=== PATIENT | female | born 1985 | race Caucasian/White ===

== ENCOUNTER → 2022-08-08 09:14 | Outpatient (BNVA) | payer OTHER, SELFPAY | PROVIDERS: Visit Provider Psychiatry & Neurology Psychiatry | DX: F33.9 Major depressive disorder, recurrent, unspecified (principal) | CPT/HCPCS: 90833 ==

== ENCOUNTER → 2022-09-28 12:19 | Outpatient (BNVA) | payer OTHER, SELFPAY | PROVIDERS: PCP Pediatrics; Visit Provider Psychiatry & Neurology Psychiatry | DX: F33.9 Major depressive disorder, recurrent, unspecified (principal); F98.8 Other specified behavioral and emotional disorders with onset usually occurring in childhood and adolescence | CPT/HCPCS: 90833 ==

== ENCOUNTER → 2022-11-22 15:57 | Outpatient (BNVA) | payer OTHER, SELFPAY | PROVIDERS: PCP Pediatrics; Visit Provider Psychiatry & Neurology Psychiatry | DX: F33.9 Major depressive disorder, recurrent, unspecified (principal) ==

== ENCOUNTER → 2023-02-28 15:33 | Outpatient (BNVA) | payer OTHER, SELFPAY | PROVIDERS: PCP Pediatrics; Visit Provider Psychiatry & Neurology Psychiatry | DX: F33.9 Major depressive disorder, recurrent, unspecified (principal) ==

== ENCOUNTER 2023-08-22 16:02 | Outpatient (AMB) | payer OTHER, SELFPAY ==
--- NOTE | 2023-08-22 16:58 | A.OFFPSYCH_ITS ---
Intake Intake Visit Reasons: Depression, ADD Allergies ceftin Allergy (Mild, Uncoded 08/22/23 16:21) Rash Medication List - Last Reconciled 08/22/23 by Jv Haney MD bupropion HCl 300 mg PO DAILY dextroamphetamine-amphetamine 10 mg 1 tab PO DAILY PRN dextroamphetamine-amphetamine 20 mg 1 tab PO BID 60 days vilazodone 10 mg PO DAILY 90 days HPI- Psychiatric Chief Complaint: Depression, ADD HPI Narrative: Patient seen psychiatric follow-up. Patient's mood is stable has full range of affect no depressive ruminations no significant seasonal changes to this point the patient enjoys her work things are stable at home patient continues on Wellbutrin and Adderall does not always need the p.r.n. in the afternoon no new medical problems Past Psychiatric History: hx depression saw therapist in school history of ADD with good response to Adderall in the past Mental Status Exam Mental Status Exam Narrative: Mental Status Exam Narrative: Appearance:casually dressed well-groomed Behavior: Cooperative good eye contact psychomotor:nl Speech:clear Thought proccess logical Thought content: No negative preoccupations Mood: Feeling stable good Affect: Ye affect SI:denies HI:denies VH/AH:none Delusions: Insight/judgment:good Memory/cog:intact Concentration and energy intact as measured Assessment and Plan Assessment & Plan (1) ADD (attention deficit disorder) without hyperactivity: Status: Acute Code(s): F98.8 - Other specified behavioral and emotional disorders with onset usually occurring in childhood and adolescence (2) Major depression in full remission: Status: Acute Code(s): F32.5 - Major depressive disorder, single episode, in full remission Plan Continue Wellbutrin 300 mg Adderall b.i.d. with afternoon dose as needed which she is not taking on a regular basis also discussed need for regular sleep schedule recommend daily exercise in the regular sleep with ADD patient consider light box Medications: Refilled bupropion HCl 300 mg PO DAILY 90 tabs 1RF dextroamphetamine-amphetamine 20 mg 1 tab PO BID 120 tabs 0RF 60 days Counseling and coordination of Care Medication management counseling: Effectiveness and Dosing range Details: I spent [33] minutes reviewing the record, seeing the patient and documenting in the medical record. Counseling provided to the patient/caregiver as outlined below. Addressed patient/caregiver concerns regarding current medication regime including effe ctive adherence. Addressed patient/caregiver concerns regarding diagnosis and prognosis including accuracy of diagnosis, prognosis over time, impact of diagnosis. Addressed patient/caregiver concerns regarding impact of recent stressors. 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
== END 2023-08-22 16:49 | disposition home or self-care (01) ==
LOC: HO.HOP 16:02
PROVIDERS: PCP Pediatrics; Visit Provider Psychiatry & Neurology Psychiatry
DX: F98.8 Other specified behavioral and emotional disorders with onset usually occurring in childhood and adolescence (principal); F32.5 Major depressive disorder, single episode, in full remission
CPT/HCPCS: 99214

== ENCOUNTER → 2023-08-22 16:02 | Outpatient (BNVA) | payer OTHER, SELFPAY | PROVIDERS: PCP Pediatrics; Visit Provider Psychiatry & Neurology Psychiatry ==

== ENCOUNTER 2023-12-19 16:14 | Outpatient (AMB) | payer OTHER, SELFPAY ==
--- NOTE | 2023-12-19 16:57 | A.OFFPSYCH_ITS ---
Intake Intake Visit Reasons: depression Allergies ceftin Allergy (Mild, Uncoded 08/22/23 16:21) Rash HPI- Psychiatric Chief Complaint: depression HPI Past Psychiatric History: hx depression saw therapist in school history of ADD with good response to Adderall in the past Assessment and Plan Assessment & Plan (1) ADD (attention deficit disorder) without hyperactivity: Status: Acute Code(s): F98.8 - Other specified behavioral and emotional disorders with onset usually occurring in childhood and adolescence Medications: New dextroamphetamine-amphetamine 37.5 mg ER Partial Fill upon patient request.fill 2 month supply dx ADD 37.5 mg PO DAILY 60 caps 0RF ADD F98.8 - Other specified behavioral and emotional disorders with onset usually occurring in childhood and adolescence Discontinued dextroamphetamine-amphetamine 20 mg Discontinued Reason: Doctor's Order 1 tab PO BID 60 days 120 tabs 0RF Counseling and coordination of Care Details: I spent Counseling provided to the patient/caregiver as outlined below. Addressed patient/caregiver concerns regarding current medication regime including effe ctive adherence. Addressed patient/caregiver concerns regarding diagnosis and prognosis including accuracy of diagnosis, prognosis over time, impact of diagnosis. Addressed patient/caregiver concerns regarding impact of recent stressors. 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
== END 2023-12-19 17:43 | disposition home or self-care (01) ==
LOC: HO.HOP 16:14
PROVIDERS: PCP Pediatrics; Visit Provider Psychiatry & Neurology Psychiatry
DX: F98.8 Other specified behavioral and emotional disorders with onset usually occurring in childhood and adolescence (principal)
CPT/HCPCS: 90833; 99213

== ENCOUNTER → 2023-12-19 16:14 | Outpatient (BNVA) | payer OTHER, SELFPAY | PROVIDERS: PCP Pediatrics; Visit Provider Psychiatry & Neurology Psychiatry ==

== ENCOUNTER 2024-01-21 17:21 | Outpatient (AMB) | payer OTHER, SELFPAY ==
--- NOTE | 2024-01-21 14:27 | MHC.OFFVISPS ---
Intake Intake Visit Reasons: DEPRESSION Allergies ceftin Allergy (Mild, Uncoded 08/22/23 16:21) Rash Medication List - Last Reconciled 01/21/24 by Jv Haney MD bupropion HCl 300 mg PO DAILY dextroamphetamine-amphetamine 10 mg 1 tab PO DAILY PRN dextroamphetamine-amphetamine 37.5 mg ER 37.5 mg PO DAILY vilazodone 10 mg PO DAILY 90 days HPI- Psychiatric Chief Complaint: DEPRESSION HPI Narrative: Pt seen in f/u feels current med changes going ok took new position she does feel more supported the patient reports her blood pressure is 120/78 she feels the long acting mixed amphetamines the recent 0.5 mg been quite helpful. There is learning curve to her new position and responsibilities but she states she feels up to the task Perhaps some difficulty at times with managing multiple tasks Past Psychiatric History: hx depression saw therapist in school history of ADD with good response to Adderall in the past Mental Status Exam Mental Status Exam Narrative: Mental Status Exam Narrative: Appearance:casually dressed well-groomed Behavior: Cooperative good eye contact psychomotor:nl Speech:clear Thought proccess logical Thought content: Some anxiety regarding work Mood: Some flattening Affect: Ye affect SI:denies HI:denies VH/AH:none Delusions: Insight/judgment:good Memory/cog:intact Concentration and energy intact as measured Assessment and Plan Assessment & Plan (1) Major depression in full remission: Status: Acute Code(s): F32.5 - Major depressive disorder, single episode, in full remission (2) ADD (attention deficit disorder) without hyperactivity: Status: Acute Code(s): F98.8 - Other specified behavioral and emotional disorders with onset usually occurring in childhood and adolescence Plan Patient generally better on long-acting stimulants feels better with this continues on Wellbutrin vilazodone with good effect Medications: Refilled vilazodone must administer with a meal/food 10 mg PO DAILY 90 tabs 1RF 90 days Counseling and coordination of Care Details: I spent [] minutes reviewing the record, seeing the patient and documenting in the medical record. Counseling provided to the patient/caregiver as outlined below. Addressed patient/caregiver concerns regarding current medication regime including effective adherence. Addressed patient/caregiver concerns regarding diagnosis and prognosis including accuracy of diagnosis, prognosis over time, impact of diagnosis. Addressed patient/caregiver concerns regarding impact of recent stressors. 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
== END 2024-01-21 17:22 | disposition home or self-care (01) ==
LOC: HO.HOP 17:21
PROVIDERS: PCP Pediatrics; Visit Provider Psychiatry & Neurology Psychiatry
DX: F32.5 Major depressive disorder, single episode, in full remission (principal); F98.8 Other specified behavioral and emotional disorders with onset usually occurring in childhood and adolescence
CPT/HCPCS: 99214

== ENCOUNTER → 2024-01-21 17:21 | Outpatient (BNVA) | payer OTHER, SELFPAY | PROVIDERS: PCP Pediatrics; Visit Provider Psychiatry & Neurology Psychiatry ==

== ENCOUNTER → 2024-05-20 15:11 | Outpatient (BNVA) | payer OTHER, SELFPAY | PROVIDERS: PCP Pediatrics; Visit Provider Psychiatry & Neurology Psychiatry | DX: F98.8 Other specified behavioral and emotional disorders with onset usually occurring in childhood and adolescence (principal) ==

== ENCOUNTER 2024-09-02 14:37 | Outpatient (AMB) | payer OTHER, SELFPAY ==
--- NOTE | 2024-09-02 15:08 | MHC.OFFVISPS ---
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 This has helped manage anxiety and dealing with the kids and maintaining boundaries. No dep sx has done well on combination of wellbutrin and vilazadone. Past Psychiatric History: hx depression saw therapist in school history of ADD with good response to Adderall in the past Mental Status Exam Mental Status Exam Narrative: Mental Status Exam Narrative: Appearance:casually dressed well-groomed Behavior: Cooperative good eye contact psychomotor:nl Speech:clear Thought proccess logical Thought content: future oriented Mood: good Affect: Full affect SI:denies HI:denies VH/AH:none Delusions: Insight/judgment:good Memory/cog:intact Concentration intact Assessment and Plan Assessment & Plan (1) ADD (attention deficit disorder) without hyperactivity: Status: Acute Code(s): F98.8 - Other specified behavioral and emotional disorders with onset usually occurring in childhood and adolescence (2) Major depression in full remission: Status: Acute Code(s): F32.5 - Major depressive disorder, single episode, in full remission Plan pt doing well on long acting stimulant and wellbutrin xl. bp 125/84 mood good doing well at new job Medications: Refilled bupropion HCl XL 300 mg PO DAILY 90 tabs 1RF dextroamphetamine-amphetamine 37.5 mg ER Partial Fill upon patient request.fill 2 month supply dx ADD 37.5 mg PO DAILY 60 caps 0RF ADD F98.8 - Other specified behavioral and emotional disorders with onset usually occurring in childhood and adolescence Counseling and coordination of Care Medication management counseling: Effectiveness, Side effects and Dosing range Diagnosis and Prognosis Counseling: Adequacy of current interventions Details: I spent [30] minutes reviewing the record, seeing the patient and documenting in the medical record. Counseling provided to the patient/caregiver as outlined below. Addressed patient/caregiver concerns regarding current medication regime including effective adherence. Addressed patient/caregiver concerns regarding diagnosis and prognosis including accuracy of diagnosis, prognosis over time, impact of diagnosis. Addressed patient/caregiver concerns regarding impact of recent stressors. 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
== END 2024-09-02 17:17 | disposition home or self-care (01) ==
LOC: HO.HOP 14:37
PROVIDERS: PCP Pediatrics; Visit Provider Psychiatry & Neurology Psychiatry
DX: F98.8 Other specified behavioral and emotional disorders with onset usually occurring in childhood and adolescence (principal); F32.5 Major depressive disorder, single episode, in full remission
CPT/HCPCS: 90833; 99213

== ENCOUNTER → 2024-09-02 14:37 | Outpatient (BNVA) | payer OTHER, SELFPAY | PROVIDERS: PCP Pediatrics; Visit Provider Psychiatry & Neurology Psychiatry | DX: F98.8 Other specified behavioral and emotional disorders with onset usually occurring in childhood and adolescence (principal) ==

== ENCOUNTER 2024-12-24 15:10 | Outpatient (AMB) | payer OTHER, SELFPAY ==
--- NOTE | 2024-12-24 14:35 | MHC.OFFVISPS ---
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 Patient generally has been doing okay does well with structure which she has learned to self provide an manage. Mood stable no breakthrough depressive episodes. There a lot of changes going on a [employer] but the patient appears to be managing. Doing well generally with her and children no difficulties at work Usually does not need to use the afternoon p.r.n. stimulant dose Past Psychiatric History: hx depression saw therapist in school history of ADD with good response to Adderall in the past Mental Status Exam Mental Status Exam Narrative: Mental Status Exam Narrative: Appearance:casually dressed well-groomed Behavior: Cooperative good eye contact psychomotor:nl Speech:clear Thought proccess logical Thought content: future oriented Mood: good Affect: Full affect SI:denies HI:denies VH/AH:none Delusions: Insight/judgment:good Memory/cog:intact Concentration intact Assessment and Plan Assessment & Plan (1) Major depression in full remission: Status: Acute Code(s): F32.5 - Major depressive disorder, single episode, in full remission (2) ADD (attention deficit disorder) without hyperactivity: Status: Acute Code(s): F98.8 - Other specified behavioral and emotional disorders with onset usually occurring in childhood and adolescence Plan On routine blood pressure check the patient's blood pressure was somewhat elevated we did try to use a large cuff blood pressure is 157 /88 At patient's PCP her reading was 124/78. Patient is aware use of stimulants and Wellbutrin can increase blood pressure. 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 If her blood pressure is truly elevated options include lowering wellbutrin lowering amphet Patient to call with follow-up blood pressure Counseling and coordination of Care Details-Self Mgmt counseling: Continue with ADD strategies Medication management counseling: Effectiveness, Side effects and Dosing range Details-Med Mgmt counseling: Issues related to potential hypertension patient to follow-up with a series readings. She is aware of risks of untreated blood pressure is aware of potential side effect from Wellbutrin and amphetamines with hypertension Details: I spent [32] minutes reviewing the record, seeing the patient and documenting in the medical record. Counseling provided to the patient/caregiver as outlined below. Addressed patient/caregiver concerns regarding current medication regime including effective adherence. Addressed patient/caregiver concerns regarding diagnosis and prognosis including accuracy of diagnosis, prognosis over time, impact of diagnosis. Addressed patient/caregiver concerns regarding impact of recent stressors. 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
--- OUTSIDE RECORDS SUMMARY | 2024-12-24 15:13 | XMS_ITS | Clinical Summary ---
Author Organization [address] [facility] Address [address] [place] [address] Phone Care Team Providers Care Aircraft Assembler Name Role Phone William Shah MD Primary Care Provider [phone] Encounters Date Type Department Care Team Description 11/16/2024 7:59 AM EST - 11/16/2024 11:59 PM EST Hospital Encounter [facility] Ultrasound [address] [place] [address] Breast mass Discharge Disposition: Home or Self Care 11/10/2024 9:06 AM EST - 11/10/2024 11:59 PM EST Hospital Encounter [facility] Ultrasound [address] [place] [address] Breast asymmetry Discharge Disposition: Home or Self Care 11/10/2024 8:09 AM EST - 11/10/2024 11:59 PM EST [facility] [address] [phone] Breast asymmetry Discharge Disposition: Home or Self Care 10/21/2024 10:22 AM EST - 10/21/2024 11:59 PM EST Hospital Encounter [facility] [address] [address] Encounter for screening mammogram for breast cancer Discharge Disposition: Home or Self Care from Last 3 Months Family History Medical History Relation Name Comments Breast cancer Mother's Sister Relation Name Status Comments Mother's Sister Social History Tobacco Use Types Packs/Day Years Used Date Smoking Tobacco: Never Assessed Comments No Sex and Gender Information Value Date Recorded Sex Assigned at Female 10/14/2024 8:13 PM EST Legal Sex Female 8:27 PM EST Gender Identity Female 10/14/2024 8:13 PM EST Sexual Orientation Not on file Obstetrics History Para Term AB IAB SAB Ectopic Multiple Livin g Live Births 2 Last Filed Vital Signs Vital Sign Reading Time Taken Comments Blood Pressure - - Pulse - - Temperature - - Respiratory Rate - - Oxygen Saturation - - Inhaled Oxygen Concentration - - Weight 95.3 kg (210 lb) 10/21/2024 10:42 AM EST Height 162.6 cm (5' 4 ) 10/21/2024 10:42 AM EST Body Mass Index 36.05 10/21/2024 10:42 AM EST Plan of Treatment Upcoming Encounters Date Type Department Care Team (Late st Contact Info) Description 05/18/2025 9:00 AM EDT [facility]ointment [facility] [address] [phone] Health Maintenance Due Date Last Done Comments Hepatitis B Vaccines (1 of 3 - 19+ 3-dose series) 01/16/2003 Cervical Cancer Screening: Pap Smear 01/16/2005 Cholesterol Screening (Lipid Panel) 12/11/2019 HIV Screening 12/11/2019 Hepatitis C Screening 12/11/2019 Social Influencers of Health Screening 12/11/2019 Depression Screening 09/20/2023 09/20/2022 COVID-19 Vaccine ( season) 2024 09/15/2021, 12/19/2020, 11/21/2020 Influenza Vaccine (#1) 2024 3, 08/20/2022, 08/15/2021, Additional history exists Breast Cancer Screening 11/10/2026 11/10/20 24, 10/21/2024, 11/26/2019 DTaP,Tdap,and Td Vaccines (3 - Td or Tdap) 09/30/2034 09/30/2024, 03/25/2013 Pneumococcal Vaccine: Pediatrics (0 to 5 Years) and At-Risk Patients (6 to 64 Years) Completed 09/20/2022, 07/27/2016 HIB Vaccines Aged Out No longer eligi ble based on patient's age to complete this topic HPV Vaccines Aged Out No longer eligi ble based on patient's age to complete this topic Hepatitis A Vaccines Aged Out No long er eligible based on patient's age to complete this topic IPV Vaccines Aged Out No longer eligi ble based on patient's age to complete this topic MMR Vaccines Aged Out No longer eligi ble based on patient's age to complete this topic Meningococcal ACWY Vaccine Aged Out N o longer eligible based on patient's age to complete this topic Meningococcal B Vacine Aged Out No lo nger eligible based on patient's age to complete this topic RSV Immunization Patients Under 20 months Aged Out No longer eligible based on patient's age to complete this topic Varicella Vaccines Aged Out No longer eligible based on patient's age to complete this topic Procedures Procedure Name Priority Date/Time Associated Diagnosis Comments US BREAST LIMITED LEFT Routine 5 9:04 AM EST Breast mass MG MAMMO DIAGNOSTIC ADDL VIEWS LEFT Routine 11/10/2024 10:41 AM EST Breast asymmetry US BREAST LIMITED LEFT Routine 4 10:34 AM EST Breast asymmetry MG MAMMO DIGITAL SCREENING W ANALILIA BILAT Routine 10/21/2024 10:58 AM EST Encounter for screening mammogram for breast cancer CBC WITH AUTO DIFFERENTIAL Routine 10/14/2024 9:12 AM EST Arthritis Family history of diabetes mellitus ROBERTO CARLOS IFA WITH TITER AND PATTERN Routine 10/14/2024 9:12 AM EST Arthritis Family history of diabetes mellitus HEMOGLOBIN A1C Routine 10/14/2024 9:12 AM EST Arthritis Family history of diabetes mellitus CBC AND DIFFERENTIAL Routine 10/14/2024 9:12 AM EST Arthritis Family history of diabetes mellitus RHEUMATOID FACTOR Routine 10/14/2024 9:1 2 AM EST Arthritis Family history of diabetes mellitus CYCLIC CITRULLINATED PEPTIDE, IGG AND IGA Routine 10/14/2024 9:12 AM EST Arthritis Family history of diabetes mellitus SEDIMENTATION RATE Routine 10/14/2024 9: 12 AM EST Arthritis Family history of diabetes mellitus C-REACTIVE PROTEIN Routine 10/14/2024 9: 12 AM EST Arthritis Family history of diabetes mellitus from Last 3 Months Results * US Breast Limited Left (11/16/2024 9:04 AM EST) Only the most recent of2 resultswithin the time period is included. Anatomical Region Laterality Modality Breast Left Ultrasound 11/16/2024 11:2 2 AM EST Impressions 11/16/2024 11:25 AM EST No persistent suspicious finding in the upper outer left breast. Sampling was not performed. Recommend short interval follow-up diagnostic mammography and targeted left breast ultrasound in 6 months I reviewed the findings and recommendations with the patient at the time of the exam ASSESSMENT: ?? BI-RADS 3: PROBABLY BENIGN RECOMMENDATION(S): 1: Follow-up diagnostic mammogram and targeted ultrasound of the left breast in 6 months. -------- FINAL REPORT -------- Dictated By: Shon Dominguez Dictated Date: 11/16/2024 11:22 ET Assigned Physician: Shon Dominguez Reviewed and Electronically Signed By: Shon Dominguez Signed Date: 11/16/2024 11:25 ET Workstation ID: [id number] Transcribed By: Self Edit Transcribed Date: 11/16/2024 11:22 ET Narrative 11/16/2024 11:25 AM EST EXAM: BREAST ULTRASOUND, LEFT HISTORY: Previous abnormal imaging. Ultrasound-guided biopsy was anticipated. Real-time scanning on the date of expected biopsy did not reveal a persistent suspicious abnormality. TECHNIQUE: LEFT BREAST. High-frequency linear transducer grayscale examination. ??Color mapping was performed. ??Examination targeted to the area of concern. COMPARISON: ??Portions of previous studies 10/21/2024, 11/10/2024 FINDINGS: ?? LEFT BREAST The entire upper outer left breast was examined by multiple observers. There is no persistent suspicious finding in the 3 o'clock region or in the 2 o'clock region. The area of previous concern appears less prominent. No biopsy was performed. ??No needle was placed. ??No tissue was submitted Procedure Note Shon Dominguez MD - 11/16/2024 EXAM: BREAST ULTRASOUND, LEFT HISTORY: Previous abnormal imaging. Ultrasound-guided biopsy was anticipated. Real-time scanning on the date of expected biopsy did not reveal apersistent suspicious abnormality. TECHNIQUE: LEFT BREAST. High-frequency linear transducer grayscale examination. Color mapping wasperformed. Examination targeted to the area of concern. COMPARISON: Portions of previous studies 10/21/2024, 11/10/2024 FINDINGS: LEFT BREAST The entire upper outer left breast was examined by multiple observers. There is no persistent suspicious finding in the 3 o'clock region or inthe 2 o'clock region. The area of previous concern appears less prominent. No biopsy was performed. No needle was placed. No tissue was submitted IMPRESSION: No persistent suspicious finding in the upper outer left breast. Sampling was not performed. Recommend short interval follow-up diagnostic mammography and targetedleft breast ultrasound in 6 months I reviewed the findings and recommendations with the patient at the timeof the exam ASSESSMENT: BI-RADS 3: PROBABLY BENIGN RECOMMENDATION(S): 1: Follow-up diagnostic mammogram and targeted ultrasound of the leftbreast in 6 months. -------- FINAL REPORT -------- Dictated By: Shon Dominguez Dictated Date: 11/16/2024 11:22 ET Assigned Physician: Shon Dominguez Reviewed and Electronically Signed By: Shon Dominguez Signed Date: 11/16/2024 11:25 ET Workstation ID: [id number] Transcribed By: Self Edit Transcribed Date: 11/16/2024 11:22 ET William Shah MD IM US PROCEDURES Final Result * (ABNORMAL) MG Mammo Diagnostic Addl Views Left (11/10/2024 10:41 AM EST) Anatomical Region Laterality Modality Breast Left Mammography 11/10/2024 8:54 AM EST Impressions 11/10/2024 9:57 AM EST Mammography demonstrates a persistent 1.8 x 1.0 cm masslike asymmetry in the upper-outer quadrant of the left breast. ??Ultrasound demonstrates a corresponding 1.8 x 0.8 x 1.3 cm hypoechoic solid mass at the 2:00 position 12 cm from nipple. ??This may represent a benign lesion but malignancy cannot be excluded and therefore ultrasound-guided biopsy is recommended. ??This finding and recommendation were discussed by me with the patient immediately following completion of imaging. ??Biopsy will be scheduled. BI-RADS CATEGORY: 4 - SUSPICIOUS RECOMMENDATION: Core biopsy of ??left breast recommended. Mammo Location: [facility], [address] [place] [id number] -------- FINAL REPORT -------- Dictated By: Vic Barker Dictated Date: 11/10/2024 08:54 ET Assigned Physician: Vic Barker Reviewed and Electronically Signed By: Vic Barker Signed Date: 11/10/2024 09:57 ET Workstation ID: [id number] Transcribed By: Self Edit Transcribed Date: 11/10/2024 09:48 ET Narrative 11/10/2024 9:57 AM EST CLINICAL: The patient is a 39 years Female. ??Screening mammography performed 10/21/2024 demonstrated an asymmetry in the upper outer quadrant of left breast at the 2:00 position, 10 cm from the nipple. COMPARISON: 10/21/2024 and 11/26/2019. ?? TECHNIQUE: Digital mammography of the left breast in full-field true lateral tomosynthesis, spot compression MLO tomosynthesis, and exaggerated CC tomosynthesis projections is performed in the mobintentographe 2000-D unit. ??Computer aided detection utilizing the Mir[employer] Medical SystemsD system was utilized. FINDINGS: The study demonstrates a persistent, 1.8 x 1.0 cm masslike asymmetry at the 2 to 3:00 position of the left breast, upper 7 to 8 cm from the nipple. ??This has somewhat irregular margins. Focused real-time ultrasonography of the area of mammographic concern is performed. ??At the 2:00 position 12 cm from the nipple, there is a well-circumscribed oval hypoechoic solid mass measuring 1.8 x 0.8 x 1.3 cm. ??This appears to correspond to the finding on mammography. ??Although this is felt likely to represent a benign lesion such as a fibroadenoma, malignancy cannot be excluded. ??The equivocal distortion in the retroareolar area is not seen on the current images. TISSUE DENSITY: There are scattered areas of fibroglandular density. (BI-RADS category B) Procedure Note Vic Barker MD - 11/10/2024 CLINICAL: The patient is a 39 years Female. Screening mammographyperformed 10/21/2024 demonstrated an asymmetry in the upper outer quadrantof left breast at the 2:00 position, 10 cm from the nipple. COMPARISON: 10/21/2024 and 11/26/2019. TECHNIQUE: Digital mammography of the left breast in full-field truelateral tomosynthesis, spot compression MLO tomosynthesis, and exaggeratedCC tomosynthesis projections is performed in the [employer] 2000-Rocawear. Computer aided detection utilizing the WaysGo system was utilized. FINDINGS: The study demonstrates a persistent, 1.8 x 1.0 cm masslikeasymmetry at the 2 to 3:00 position of the left breast, upper 7 to 8 cmfrom the nipple. This has somewhat irregular margins. Focused real-time ultrasonography of the area of mammographic concern isperformed. At the 2:00 position 12 cm from the nipple, there is awell-circumscribed oval hypoechoic solid mass measuring 1.8 x 0.8 x 1.3cm. This appears to correspond to the finding on mammography. Althoughthis is felt likely to represent a benign lesion such as a fibroadenoma,malignancy cannot be excluded. The equivocal distortion in theretroareolar area is not seen on the current images. TISSUE DENSITY: There are scattered areas of fibroglandular density.(BI-RADS category B) IMPRESSION: Mammography demonstrates a persistent 1.8 x 1.0 cm masslike asymmetry inthe upper-outer quadrant of the left breast. Ultrasound demonstrates acorresponding 1.8 x 0.8 x 1.3 cm hypoechoic solid mass at the 2:00position 12 cm from nipple. This may represent a benign lesion butmalignancy cannot be excluded and therefore ultrasound-guided biopsy isrecommended. This finding and recommendation were discussed by me withthe patient immediately following completion of imaging. Biopsy will bescheduled. BI-RADS CATEGORY: 4 - SUSPICIOUS RECOMMENDATION: Core biopsy of left breast recommended. Mammo Location: [facility], [address] [place] [id number] -------- FINAL REPORT -------- Dictated By: Vic Barker Dictated Date: 11/10/2024 08:54 ET Assigned Physician: Vic Barker Reviewed and Electronically Signed By: Vic Barker Signed Date: 11/10/2024 09:57 ET Workstation ID: [id number] Transcribed By: Self Edit Transcribed Date: 11/10/2024 09:48 ET William Shah MD IM BI PROCEDURES Final Result * (ABNORMAL) MG Mammo Digital Screening w Analilia bilat (10/21/2024 10:58 AM EST) Anatomical Region Laterality Modality Breast Bilateral Mammography 10/21/2024 5:44 PM EST Impressions 10/21/2024 5:56 PM EST Incompletely characterized global asymmetry upper outer left breast. ??Recommend diagnostic left mammography including spot compression in the exaggerated lateral craniocaudal view using Tomosynthesis. ??Recommend spot compression in the MLO projection. ?? Equivocal distortion of the left retroareolar region in the MLO projection. ??Recommend full field mediolateral view of the left breast using Tomosynthesis Left breast ultrasound if warranted by the results of the diagnostic mammogram ASSESSMENT: ?? BI-RADS 0: INCOMPLETE - need additional imaging evaluation and/or prior mammograms for comparison RECOMMENDATION(S): 1: Special mammographic view(s) needed LEFT Left breast ultrasound if warranted by the results of the diagnostic mammography -------- FINAL REPORT -------- Dictated By: Shon Dominguez Dictated Date: 10/21/2024 17:44 ET Assigned Physician: Shon Dominguez Reviewed and Electronically Signed By: Shon Dominguez Signed Date: 10/21/2024 17:56 ET Workstation ID: [id number] Transcribed By: Self Edit Transcribed Date: 10/21/2024 17:44 ET Narrative 10/21/2024 5:56 PM EST EXAM: ??SCREENING MAMMOGRAPHY, BILATERAL HISTORY: ??SCREENING. ??Maternal aunt with history of breast cancer. COMPARISON: ??11/26/2019 TECHNIQUE: Synthesized CC and MLO projections of each breast. ??Tomosynthesis of each breast in the CC and MLO projections. ADDITIONAL IMAGING: None Computer-aided detection was employed with the iCAD ??profound AI 3-D. TISSUE DENSITY: There are scattered areas of fibroglandular density. (BI-RADS category B) FINDINGS: RIGHT BREAST: No suspicious mass. No suspicious calcification. No distortion. ?? No additional suspicious right breast findings LEFT BREAST: There is an incompletely characterized global asymmetry in the 2 o'clock position 10 cm from the left nipple. ??This is more prominent than on the previous study. ?? Equivocal distortion in the left retroareolar region in the craniocaudal projection could be positional. Procedure Note Shon Dominguez MD - 10/21/2024 EXAM: SCREENING MAMMOGRAPHY, BILATERAL HISTORY: SCREENING. Maternal aunt with history of breast cancer. COMPARISON: 11/26/2019 TECHNIQUE: Synthesized CC and MLO projections of each breast.Tomosynthesis of each breast in the CC and MLO projections. ADDITIONAL IMAGING: None Computer-aided detection was employed with the iCAD profound AI 3-D. TISSUE DENSITY: There are scattered areas of fibroglandular density.(BI-RADS category B) FINDINGS: RIGHT BREAST: No suspicious mass. No suspicious calcification. No distortion. Noadditional suspicious right breast findings LEFT BREAST: There is an incompletely characterized global asymmetry in the 2 o'clockposition 10 cm from the left nipple. This is more prominent than on theprevious study. Equivocal distortion in the left retroareolar region in the craniocaudalprojection could be positional. IMPRESSION: Incompletely characterized global asymmetry upper outer left breast.Recommend diagnostic left mammography including spot compression in theexaggerated lateral craniocaudal view using Tomosynthesis. Recommend spotcompression in the MLO projection. Equivocal distortion of the left retroareolar region in the MLOprojection. Recommend full field mediolateral view of the left breastusing Tomosynthesis Left breast ultrasound if warranted by the results of the diagnosticmammogram ASSESSMENT: BI-RADS 0: INCOMPLETE - need additional imaging evaluation and/or priormammograms for comparison RECOMMENDATION(S): 1: Special mammographic view(s) needed LEFT Left breast ultrasound if warranted by the results of the diagnosticmammography -------- FINAL REPORT -------- Dictated By: Shon Dominguez Dictated Date: 10/21/2024 17:44 ET Assigned Physician: Shon Dominguez Reviewed and Electronically Signed By: Shon Dominguez Signed Date: 10/21/2024 17:56 ET Workstation ID: [id number] Transcribed By: Self Edit Transcribed Date: 10/21/2024 17:44 ET us Self Referral Sppl IMG BI PROCEDURES Final Resul t * Cyclic citrullinated peptide, IgG and IgA (10/14/2024 9:12 AM EST) CCP AB Quant 6 <20 Units LAB CHEMISTRY METHOD 10/20/2024 10:32 AM EST [facility] Cyclic Citrullinated Peptide (CCP) Antibody Negative Negative LAB CHEMISTRY METHOD 10/20/2024 10:32 AM EST [facility] Blood Venous blood specimen / Unknown Venipuncture / Unknown 10/14/2024 9:12 AM EST 10/14/2024 9:56 AM EST us William Shah MD LAB BLOOD ORDERABLES Final Res ult [facility] [address] [place] [address], * ROBERTO CARLOS IFA with titer and pattern (10/14/2024 9:12 AM EST) ROBERTO CARLOS Negative Negative 10/15/2024 11:46 AM EST [facility] Blood Venous blood specimen / Unknown Venipuncture / Unknown 10/14/2024 9:12 AM EST 10/14/2024 9:56 AM EST us William Shah MD LAB BLOOD ORDERABLES Final Res ult [facility] [address] [place] [address], * (ABNORMAL) CBC auto differential (10/14/2024 9:12 AM EST) [facility] Signature WBC 8.6 4.8 - 10.8 K/mcL LAB HEMETOLOGY METHOD 10/14/2024 10:19 AM [facility] RBC 4.80 3.80 - 4.80 M/mcL LAB HEMETOLOGY METHOD 10/14/2024 10:19 AM [facility] Hemoglobin 13.3 11.5 - 16.0 g/dL LAB HEMETOLOGY METHOD 10/14/2024 10:19 AM [facility] Hematocrit 41.7 35.0 - 47.0 % LAB HEMETOLOGY METHOD 10/14/2024 10:19 AM [facility] MCV 86.5 79.0 - 98.0 FL LAB HEMETOLOGY METHOD 10/14/2024 10:19 AM [facility] MCH 27.6 27.0 - 32.0 pcg LAB HEMETOLOGY METHOD 10/14/2024 10:19 AM [facility] MCHC 31.9(L) 32.0 - 37.0 g/dL LAB HEMETOLOGY METHOD 10/14/2024 10:19 AM [facility] RDW 12.5 11.0 - 15.0 % LAB HEMETOLOGY METHOD 10/14/2024 10:19 AM [facility] Platelets 466(H) 130 - 400 K/mcL LAB HEMETOLOGY METHOD 10/14/2024 10:19 AM [facility] MPV 9.1 7.0 - 11.0 FL LAB HEMETOLOGY METHOD 10/14/2024 10:19 AM [facility] NRBC 0.0 <1.0 % LAB HEMETOLOGY METHOD 10/14/2024 10:19 AM [facility] NRBC Absolute 0.00 <0.10 K/mcL LAB HEMETOLOGY METHOD 10/14/2024 10:19 AM [facility] Neutrophils Relative 66.4 % LAB HEMETOLOGY METHOD 10/14/2024 10:19 AM [facility] Lymphocytes Relative 26.0 % LAB HEMETOLOGY METHOD 10/14/2024 10:19 AM [facility] Monocytes Relative 5.8 % LAB HEMETOLOGY METHOD 10/14/2024 10:19 AM [facility] Eosinophils Relative 1.0 % LAB HEMETOLOGY METHOD 10/14/2024 10:19 AM [facility] Basophils Relative 0.5 % LAB HEMETOLOGY METHOD 10/14/2024 10:19 AM [facility] Immature Granulocytes Relative 0.3 % LAB HEMETOLOGY METHOD 10/14/2024 10:19 AM [facility] Neutrophils Absolute 5.69 1.50 - 7.00 K/mcL LAB HEMETOLOGY METHOD 10/14/2024 10:19 AM [facility] Lymphocytes Absolute 2.23 1.00 - 5.00 K/mcL LAB HEMETOLOGY METHOD 10/14/2024 10:19 AM [facility] Monocytes Absolute 0.50 0.20 - 1.00 K/mcL LAB HEMETOLOGY METHOD 10/14/2024 10:19 AM [facility] Eosinophils Absolute 0.09 0.00 - 0.50 K/mcL LAB HEMETOLOGY METHOD 10/14/2024 10:19 AM [facility] Basophils Absolute 0.04 0.00 - 0.20 K/mcL LAB HEMETOLOGY METHOD 10/14/2024 10:19 AM [facility] Immature Granulocytes Absolute 0.03 0.00 - 0.03 K/mcL LAB HEMETOLOGY METHOD 10/14/2024 10:19 AM EST [facility] Blood Venous blood specimen / Unknown Venipuncture / Unknown 10/14/2024 9:12 AM EST 10/14/2024 9:57 AM EST us William Shah MD LAB BLOOD ORDERABLES Final Res ult Performing Organization Address [facility]/ZIP Co de Phone Number [facility] [address] [place] [address], [place] [phone] * (ABNORMAL) Sedimentation rate (10/14/2024 9:12 AM EST) Pathologist [facility] Sed Rate 32(H) 0 - 20 mm/hr LAB HEMETOLOGY METHOD 10/14/2024 10:13 AM EST [facility] Blood Venous blood specimen / Unknown Venipuncture / Unknown 10/14/2024 9:12 AM EST 10/14/2024 9:57 AM EST us William Shah MD LAB BLOOD ORDERABLES Final Res ult Performing Organization Address [facility] de Phone Number [facility] [address] [place] [address], [place] [phone] * Rheumatoid factor (10/14/2024 9:12 AM EST) [facility] Rheumatoid Factor <10.0 <15.0 I Unit/mL LAB CHEMISTRY METHOD 10/14/2024 10:44 AM EST [facility] Blood Venous blood specimen / Unknown Venipuncture / Unknown 10/14/2024 9:12 AM EST 10/14/2024 9:56 AM EST us William Shah MD LAB BLOOD ORDERABLES Final Res ult Performing Organization Address City/[facility]/ZIP Co de Phone Number [facility] [address] [place] [address], [place] [phone] * (ABNORMAL) C-reactive protein (10/14/2024 9:12 AM EST) Pathologist [facility] C-Reactive Protein 2.31(H) <=0.50 mg/dL LAB CHEMISTRY METHOD 10/14/2024 10:44 AM EST [facility] Blood Venous blood specimen / Unknown Venipuncture / Unknown 10/14/2024 9:12 AM EST 10/14/2024 9:56 AM EST us William Shah MD LAB BLOOD ORDERABLES Final Res ult [facility] [address] [place] [address], [place] [phone] * Hemoglobin A1c (10/14/2024 9:12 AM EST) [facility] Hemoglobin A1C 4.8 <6.5 % LAB CHEMISTRY METHOD 10/14/2024 12:45 PM EST [facility] Mean Bld Glu Estim. 91 mg/dL LAB CHEMISTRY METHOD 10/14/2024 12:45 PM EST [facility] Blood Venous blood specimen / Unknown Venipuncture / Unknown 10/14/2024 9:12 AM EST 10/14/2024 9:57 AM EST us William Shah MD LAB BLOOD ORDERABLES Final Res ult [facility] [address] [place] [address], [place] [phone] from Last 3 Months Insurance [employer] Care Teams Aircraft Assembler Relationship Specialty Start Date End Date William Shah MD [address] [facility] [address] [place] [address] PCP - General Pediatrics 10/14/24
--- OUTSIDE RECORDS SUMMARY | 2024-12-24 15:13 | XMS_ITS | Continuity of Care Document ---
Author Name [facility] Organization [facility] Care Team Providers Care [facility] Name Role Phone [facility] Unavailable Unavailable Social History Combined list of available smoking, tobacco, and other social history from [facility] and [facility] facilities. Social History Type Response Date Comment Sourc e This section is an empty social history section. [facility]
== END 2024-12-24 15:13 | disposition home or self-care (01) ==
LOC: HO.HOP 15:10
PROVIDERS: PCP Pediatrics; Visit Provider Psychiatry & Neurology Psychiatry
DX: F32.5 Major depressive disorder, single episode, in full remission (principal); F98.8 Other specified behavioral and emotional disorders with onset usually occurring in childhood and adolescence
CPT/HCPCS: 99214

== ENCOUNTER 2025-06-29 14:31 | Outpatient (AMB) | payer OTHER, SELFPAY ==
[2025-06-29 15:22] VITALS: BP 140/93
--- NOTE | 2025-06-29 15:25 | MHC.OFFVISPS ---
Intake Vital Signs 06/29/25 15:22 BP 140/93 H Intake Visit Reasons: depression Allergies ceftin Allergy (Mild, Uncoded 08/22/23 16:21) Rash HPI- Psychiatric Chief Complaint: depression HPI Narrative: She had himself up every night I patient seen psychiatric follow-up. Patient's mood somewhat more anxious and has been more disorganized Having a difficult time keeping herself on track . The patient has been on VILAZODONE WELLBUTRIN AND ADDERALL XR Past Psychiatric History: hx depression saw therapist in school history of ADD with good response to Adderall in the past Mental Status Exam Mental Status Exam Narrative: Mental Status Exam Narrative: Appearance:casually dressed well-groomed Behavior: Cooperative good eye contact psychomotor:nl Speech:clear Thought proccess logical Thought content: future oriented focused on treatment feeling somewhat at a sort at work Mood: good Affect: Full affect SI:denies HI:denies VH/AH:none Delusions: Insight/judgment:good Memory/cog:intact Concentration intact Assessment and Plan Assessment & Plan (1) ADD (attention deficit disorder) without hyperactivity: Status: Acute Code(s): F98.8 - Other specified behavioral and emotional disorders with onset usually occurring in childhood and adolescence (2) Major depression in full remission: Status: Acute Code(s): F32.5 - Major depressive disorder, single episode, in full remission Plan Patient's blood pressure 140/93 discussed lowering Wellbutrin to 150 mg patient has not been depressed for an extended period of time and Wellbutrin does not seem to be particularly helpful for her ADD symptoms. Extensive discussion regarding hygiene retraining sleep clonidine 0.1 mg ordered p.r.n. discussed different strategies is maintain context of ADD. Patient will monitor blood pressure as an outpatient was changed to Vyvanse 40 mg long-acting Adderall XR discontinued. Has not had adequate response some this may relate to change in work versus lack of efficacy of current regimen and lack of sleep lowering Wellbutrin will hopefully improve blood pressure also patient to have her blood pressure take a regular basis and 2: call in Results. Patient also urged to speak to her PCP also add clonidine at bedtime as needed which will also help with blood pressure if needed Medications: New lisdexamfetamine (Vyvanse) Partial Fill upon patient request. 40 mg PO DAILY 60 caps 0RF clonidine HCl 0.1 mg PO BEDTIME PRN 90 tabs 1RF insomnia bupropion HCl XL (Wellbutrin XL) 150 mg PO QAM 90 tabs 1RF Discontinued bupropion HCl XL Discontinued Reason: Doctor's Order 300 mg PO DAILY 90 tabs 1RF dextroamphetamine-amphetamine 10 mg Discontinued Reason: Doctor's Order 1 tab PO DAILY PRN 60 tabs 0RF attentional problems dextroamphetamine-amphetamine 37.5 mg ER Partial Fill upon patient request.fill 2 month supply dx ADD Discontinued Reason: Doctor's Order 37.5 mg PO DAILY 60 caps 0RF ADD F98.8 - Other specified behavioral and emotional disorders with onset usually occurring in childhood and adolescence Counseling and coordination of Care Details: I spent [] minutes reviewing the record, seeing the patient and documenting in the medical record. Counseling provided to the patient/caregiver as outlined below. Addressed patient/caregiver concerns regarding current medication regime including effective adherence. Addressed patient/caregiver concerns regarding diagnosis and prognosis including accuracy of diagnosis, prognosis over time, impact of diagnosis. Addressed patient/caregiver concerns regarding impact of recent stressors. 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
--- OUTSIDE RECORDS SUMMARY | 2025-06-29 15:51 | XMS_ITS | Continuity of Care Document ---
Author Name [facility] Organization [facility] Care Team Providers Care [employer] Name Role Phone [facility] Unavailable Unavailable Social History Combined list of available smoking, tobacco, and other social history from [facility] and [facility] facilities. Social History Type Response Date Comment Sourc e This section is an empty social history section. [facility]
--- OUTSIDE RECORDS SUMMARY | 2025-06-29 15:52 | XMS_ITS | Clinical Summary ---
Author Organization [facility] Address [address] [place] [address] Phone Care Team Providers Care Fabric Sourcer Name Role Phone William Shah MD Primary Care Provider [phone] Encounters Date Type Department Care Team Description 06/10/2025 8:39 AM EDT - 06/10/2025 11:59 PM EDT [facility] [address] [place] [address] Breast mass Discharge Disposition: Home or Self Care 06/10/2025 8:38 AM EDT - 06/10/2025 11:59 PM EDT Hospital [facility] [address] [place] [address] Breast mass Discharge Disposition: Home or Self Care 06/07/2025 3:50 PM EDT - 06/07/2025 11:59 PM EDT Hospital Encounter Xray [address] [place] [address] Unspecified osteoarthritis, unspecified site Discharge Disposition: Home or Self Care 05/28/2025 8:52 AM EDT - 05/28/2025 11:59 PM EDT Hospital Encounter Ultrasound [address] [place] [address] Breast mass Discharge Disposition: Home or Self Care 05/28/2025 8:08 AM EDT - 05/28/2025 11:59 PM EDT [facility] at [address] [address] Breast mass Discharge Disposition: Home or Self Care from [...] - - Weight 95.3 kg (210 lb) 05/28/2025 8:21 AM EDT Height 162.6 cm (5' 4 ) 05/28/2025 8:21 AM EDT Body Mass Index 36.05 05/28/2025 8:21 AM EDT Plan of Treatment Upcoming Encounters Date Type Department Care Team (Late st Contact Info) Description 07/23/2025 9:00 AM EDT Consult Rheumatology - [place] [address] [place] [address] [phone] Nereida Rodriguez MD [address] [place] [id number] Health Maintenance Due Date Last Done Comments Hepatitis B Vaccines (1 of 3 - 19+ 3-dose series) 01/16/2003 Cervical Cancer Screening: Pap Smear 01/16/2005 Cholesterol Screening (Lipid Panel) 12/11/2019 HIV Screening 12/11/2019 Hepatitis C Screening 12/11/2019 Social Influencers of Health Screening 12/11/2019 COVID-19 Vaccine ( season) 2024 09/15/2021, 12/19/2020, 11/21/2020 Depression Screening 11/11/2024 Influenza Vaccine (#1) 2025 3, 08/20/2022, 08/15/2021, Additional history exists Breast Cancer Screening 06/10/2027 06/10/20, 05/28/2025, 11/10/2024, Additional history exists DTaP,Tdap,and Td Vaccines (3 - Td or Tdap) 09/30/2034 09/30/2024, 03/25/2013 Pneumococcal Vaccine: Pediatrics (0 to 5 Years) and At-Risk Patients (6 to 49 Years) Completed 09/20/2022, 07/27/2016 HIB Vaccines Aged [...] age to complete this topic Meningococcal B Vaccine Aged Out No l onger eligible based on patient's age to complete this topic RSV Immunization Patients Under 20 months Aged Out No longer eligible based on patient's age to complete this topic Varicella Vaccines Aged Out No longer eligible based on patient's age to complete this topic Medical Devices Implanted Type Area Liquor Store Manager Device Identifier Shelf Expiration Date Model / Serial / Lot Marker Breast Biopsy 10g Flexible Ti Barrel Hydromark - [id number] Implanted:Qty: 1 on 06/10/2025 by Shon Dominguez MD at [facility] Breast Implants Left: Breast [employer] [id number] 05/25/2027 4010-05- 10-T1 / / [id number] 2D Procedures Procedure Name Priority Date/Time Associated Diagnosis Comments MG MAMMO DIGITAL DIAGNOSTIC POST CLIP LEFT Routine 06/10/2025 10:06 AM EDT Breast mass MG STEREO BX BREAST PERC 1ST LESION LEFT Routine 06/10/2025 10:05 AM EDT Breast mass TISSUE EXAM Routine 06/10/2025 9:28 AM EDT Breast mass XR HAND 3+ VIEWS BILAT Routine 06/07/2025 4:00 PM EDT Unspecified osteoarthritis, unspecified site MG MAMMO DIGITAL DIAGNOSTIC W ANALILIA LEFT Routine 05/28/2025 9:27 AM EDT Breast mass US BREAST LIMITED LEFT Routine 05/28/2025 9:14 AM EDT Breast mass from Last 3 Months Results * MG Mammo Digital Diagnostic Clip Post MG Guide Left (Statistics) (06/10/2025 10:06 AM EDT) Anatomical Region Laterality Modality Breast Left Mammography 06/10/2025 11:4 8 AM EDT Addenda Addendum by Shon Dominguez MD on 06/11/2025 1:36 PM EDT Addendum: The final pathology results from the procedure are now available; DATE: 06/10/25 LOCATION: 2:00 position, 10 cm from left nipple STEREOTACTICALLY GUIDED FINAL PATHOLOGY RESULT: Final Diagnosis Left breast tissue, 2:00, 10 cm from nipple, stereotactic core biopsy (barrel clip): -Columnar cell change and occasional microcysts with rare associated microcalcifications. -Adenosis. -Mild usual ductal hyperplasia. -Variably dense stroma including areas with pseudoangiomatous stromal hyperplasia (PASH)-like features. -No atypical hyperplasia, no carcinoma in situ and no invasive carcinoma identified. ? Note: Correlation with clinical and imaging findings is recommended. CONCORDANCE: The final pathology results and imaging findings are concordant ASSESSMENT: BI-RADS 2: BENIGN RECOMMENDATION(S): 1: Routine screening mammogram BILATERAL in 1 year. COMMUNICATION: Dr. Dominguez notified the patient of the results and recommendations at approximately 1336 hours on 06/11/25. The patient had already reviewed the results through the electronic portal. Addendum: BREAST DENSITY: B - There are scattered areas of fibroglandular density. BI-RADS CATEGORY: 2 - BENIGN RECOMMENDATION: Screening bilateral mammogram is recommended in 1 year. -------- ADDENDUM -------- Dictated By: Shon Dominguez Dictated Date: 06/11/2025 13:33 ET Assigned Physician: Shon Dominguez Reviewed and Electronically Signed By: Shon Dominguez Signed Date: 06/11/2025 13:36 ET Workstation ID: [id number] Transcribed By: Self Edit Transcribed Date: 06/11/2025 13:33 ET Impressions 06/10/2025 11:52 AM EDT STEREOTACTIC MAMMOGRAPHY was used to localize and guide left breast biopsy. STEREOTACTIC MAMMOGRAPHY was used to guide placement of a biopsy site marker. There was no evidence of immediate complication. Postprocedure mammography was performed. An addendum will be generated when the pathology results become available RECOMMENDATION: Pathology pending for the left breast. Location: [address], [id number] -------- FINAL REPORT -------- Dictated By: Shon Dominguez Dictated Date: 06/10/2025 11:48 ET Assigned Physician: Shon Dominguez Reviewed and Electronically Signed By: Shon Dominguez Signed Date: 06/10/2025 11:52 ET Workstation ID: [id number] Transcribed By: Self Edit Transcribed Date: 06/10/2025 11:48 ET Narrative 06/10/2025 11:52 AM EDT EXAM: STEREOTACTIC MAMMOGRAPHY GUIDED BREAST BIOPSY, LEFT BIOPSY SITE MARKER PLACEMENT : Biopsy site marker was placed POSTPROCEDURE MAMMOGRAPHY: Was performed EXAM DATE AND TIME: 06/10/2025 9:04 AM HISTORY: 1.8 cm low density focal asymmetry in the 2 o'clock position 10 cm from the left nipple. No sonographic correlate. Tissue diagnosis requested PROCEDURE: Informed consent was obtained. A procedure pause was performed including patient identification using 3 identifiers. Preprocedure imaging demonstrated: A low density focal asymmetry in the 2 o'clock position 10 cm from the left nipple Using sterile technique and lidocaine anesthesia, Stereotactic mammography guided biopsy of the left breast was performed from a lateral approach. A 10 gauge Vacuum assisted core biopsy device was used. There was documentation of appropriate needle placement with digital archive. SPECIMEN RADIOGRAPHY: Was not performed. 6 specimens were placed in formalin and submitted for pathologic evaluation. A radiopaque marker was deployed at the site for future reference. The initial attempt at deployment revealed that the biopsy site marker remained engaged with a device during partial withdrawal. The device was repositioned at the site of biopsy and a 2nd biopsy site marker was introduced. It appears as if the 2nd biopsy site marker dislodged the original barrel. BIOPSY SITE MARKER SHAPE: BARREL Upon completion of the procedure, pressure was applied until adequate hemostasis was obtained. The patient tolerated the procedure well and was discharged in good condition after being educated regarding post procedure care and instructions and contact information should she be concerned about a complication. An addendum will be generated when the pathology results become available. Postprocedure mammography: Was performed Laterality: LEFT TISSUE DENSITY: There are scattered areas of fibroglandular density. (BI-RADS category B) FINDINGS: The biopsy site marker appears appropriately positioned. Only a single biopsy site marker is present. There is no evidence of immediate complication. No new suspicious findings. us William Shah MD IMG BI PROCEDURES Edited Resul t - Final * MG Stereo Bx Breast Perc 1st Lesion Left w/ MG Post Clip Imaging to follow (06/10/2025 10:05 AM EDT) Anatomical Region Laterality Modality Breast Left Mammography 06/10/2025 11:4 8 AM EDT Addenda Addendum by Shon Dominguez MD on 06/11/2025 1:36 PM EDT Addendum: The final pathology results from the procedure are now available; DATE: 06/10/25 LOCATION: 2:00 position, 10 cm from left nipple STEREOTACTICALLY GUIDED FINAL PATHOLOGY RESULT: Final Diagnosis Left breast tissue, 2:00, 10 cm from nipple, stereotactic core biopsy (barrel clip): -Columnar cell change and occasional microcysts with rare associated microcalcifications. -Adenosis. -Mild usual ductal hyperplasia. -Variably dense stroma including areas with pseudoangiomatous stromal hyperplasia (PASH)-like features. -No atypical hyperplasia, no carcinoma in situ and no invasive carcinoma identified. ? Note: Correlation with clinical and imaging findings is recommended. CONCORDANCE: The final pathology results and imaging findings are concordant ASSESSMENT: BI-RADS 2: BENIGN RECOMMENDATION(S): 1: Routine screening mammogram BILATERAL in 1 year. COMMUNICATION: Dr. Dominguez notified the patient of the results and recommendations at approximately 1336 hours on 06/11/25. The patient had already reviewed the results through the electronic portal. Addendum: BREAST DENSITY: B - There are scattered areas of fibroglandular density. BI-RADS CATEGORY: 2 - BENIGN RECOMMENDATION: Screening bilateral mammogram is recommended in 1 year. -------- ADDENDUM -------- Dictated By: Shon Dominguez Dictated Date: 06/11/2025 13:33 ET Assigned Physician: Shon Dominguez Reviewed and Electronically Signed By: Shon Dominguez Signed Date: 06/11/2025 13:36 ET Workstation ID: [id number] Transcribed By: Self Edit Transcribed Date: 06/11/2025 13:33 ET Impressions 06/10/2025 11:52 AM EDT STEREOTACTIC MAMMOGRAPHY was used to localize and guide left breast biopsy. STEREOTACTIC MAMMOGRAPHY was used to guide placement of a biopsy site marker. There was no evidence of immediate complication. Postprocedure mammography was performed. An addendum will be generated when the pathology results become available RECOMMENDATION: Pathology pending for the left breast. Location: [address], [address] -------- FINAL REPORT -------- Dictated By: Shon Dominguez Dictated Date: 06/10/2025 11:48 ET Assigned Physician: Shon Dominguez Reviewed and Electronically Signed By: Shon Dominguez Signed Date: 06/10/2025 11:52 ET Workstation ID: [id number] Transcribed By: Self Edit Transcribed Date: 06/10/2025 11:48 ET Narrative 06/10/2025 11:52 AM EDT EXAM: STEREOTACTIC MAMMOGRAPHY GUIDED BREAST BIOPSY, LEFT BIOPSY SITE MARKER PLACEMENT : Biopsy site marker was placed POSTPROCEDURE MAMMOGRAPHY: Was performed EXAM DATE AND TIME: 06/10/2025 9:04 AM HISTORY: 1.8 cm low density focal asymmetry in the 2 o'clock position 10 cm from the left nipple. No sonographic correlate. Tissue diagnosis requested PROCEDURE: Informed consent was obtained. A procedure pause was performed including patient identification using 3 identifiers. Preprocedure imaging demonstrated: A low density focal asymmetry in the 2 o'clock position 10 cm from the left nipple Using sterile technique and lidocaine anesthesia, Stereotactic mammography guided biopsy of the left breast was performed from a lateral approach. A 10 gauge Vacuum assisted core biopsy device was used. There was documentation of appropriate needle placement with digital archive. SPECIMEN RADIOGRAPHY: Was not performed. 6 specimens were placed in formalin and submitted for pathologic evaluation. A radiopaque marker was deployed at the site for future reference. The initial attempt at deployment revealed that the biopsy site marker remained engaged with a device during partial withdrawal. The device was repositioned at the site of biopsy and a 2nd biopsy site marker was introduced. It appears as if the 2nd biopsy site marker dislodged the original barrel. BIOPSY SITE MARKER SHAPE: BARREL Upon completion of the procedure, pressure was applied until adequate hemostasis was obtained. The patient tolerated the procedure well and was discharged in good condition after being educated regarding post procedure care and instructions and contact information should she be concerned about a complication. An addendum will be generated when the pathology results become available. Postprocedure mammography: Was performed Laterality: LEFT TISSUE DENSITY: There are scattered areas of fibroglandular density. (BI-RADS category B) FINDINGS: The biopsy site marker appears appropriately positioned. Only a single biopsy site marker is present. There is no evidence of immediate complication. No new suspicious findings. us William Shah MD IMG BI PROCEDURES Edited Resul t - Final * Tissue exam (06/10/2025 9:28 AM EDT) Final Diagnosis Left breast tissue, 2:00, 10 cm from nipple, stereotactic core biopsy (barrel clip): - Columnar cell change and occasional microcysts with rare associated microcalcifications . - Adenosis. - Mild usual ductal hyperplasia. - Variably dense stroma including areas with pseudoangiomatous stromal hyperplasia (PASH)-like features. - No atypical hyperplasia, no carcinoma in situ and no invasive carcinoma identified. Note: Correlation with clinical and imaging findings is recommended. 06/11/2025 9:21 AM EDT [facility] Clinical Information 1.8 cm low-density focal asymmetry left breast 2 o'clock, 10 cm from nipple Not seen on ultrasound, low suspicion, 10-gauge six cores, barrel Probability that the target was sampled: High History of previous breast cancer: No History of non-breast cancer: No History of atypical hyperplasia: No History of radiation/chemother apy: No 06/11/2025 9:21 AM EDT [facility] Gross Description A. Breast, Left, left breast with tissue: Labeled left breast and additionally tissue left breast on the top of the lid . Received in formalin, some of which is in a plastic collection device, is a 2.5 x 2.0 x 0.6 cm aggregate of soft to rubbery yellow-white to pink, fibrofatty tissue cores, which are submitted in toto, between sponges, in two cassette, multiple pieces each, x 3. Time removed from patient (warm ends < cold ischemia starts): 9:27 AM 06/10/2025 Time put in formalin (cold ischemia ends): 9:32 AM 06/10/2025 Total cold ischemic time: 5 minutes Time tissue exits final stage of formalin on tissue processor: 9:00 PM 06/10/2025 Total fixation time (Ideally greater than 6 hours and less than 72 hours): Approximately 11.5 hours TS 06/11/2025 9:21 AM EDT [facility] Disclaimer Unless otherwise specified, all tissue is 10% NB formalin fixed and paraffin embedded. 06/11/2025 9:21 AM EDT [facility] Tissue Left breast structure / Unknown 06/10/2025 9:28 AM EDT 06/10/2025 11:32 AM EDT us Shon Dominguez MD LAB PATHOLOGY ORDERABLES Tiffani mata Result [facility] [address] [place] [address], * XR Hand 3+ Views bilat (06/07/2025 4:00 PM EDT) Anatomical Region Laterality Modality Upper Extremities, Hand Bilateral Radiogra phic Imaging 06/09/2025 7:51 AM EDT Impressions 06/09/2025 7:53 AM EDT Normal examination. Code 03433, [address] -------- FINAL REPORT -------- Dictated By: Vic Barker Dictated Date: 06/09/2025 07:51 ET Assigned Physician: Vic Barker Reviewed and Electronically Signed By: Vic Barker Signed Date: 06/09/2025 07:53 ET Workstation ID: [id number] Transcribed By: Self Edit Transcribed Date: 06/09/2025 07:51 ET Narrative 06/09/2025 7:53 AM EDT HISTORY: The patient is a 40-year-old female with provided history of arthritis. FINDINGS: AP, lateral, and oblique views of the right hand, AP, lateral, and oblique views of the left hand, and ball-catcher's views of both hands are obtained. The study demonstrates no fracture, dislocation, arthritic change, or other bony abnormality in either hand. No soft tissue abnormality is seen. Procedure Note Vic Barker MD - 06/09/2025 HISTORY: The patient is a 40-year-old female with provided history ofarthritis. FINDINGS: AP, lateral, and oblique views of the right hand, AP, lateral,and oblique views of the left hand, and ball-catcher's views of both handsare obtained. The study demonstrates no fracture, dislocation, arthriticchange, or other bony abnormality in either hand. No soft tissueabnormality is seen. IMPRESSION: Normal examination. Code 28108, 31102 -------- FINAL REPORT -------- Dictated By: Vic Barker Dictated Date: 06/09/2025 07:51 ET Assigned Physician: Vic Barker Reviewed and Electronically Signed By: Vic Barker Signed Date: 06/09/2025 07:53 ET Workstation ID: [id number] Transcribed By: Self Edit Transcribed Date: 06/09/2025 07:51 ET William Shah MD IMG XR PROCEDURES Final Result * (ABNORMAL) MG Mammo Digital Diagnostic w Analilia Left (05/28/2025 9:27 AM EDT) Anatomical Region Laterality Modality Breast Left Mammography 05/28/2025 8:38 AM EDT Impressions 05/28/2025 9:27 AM EDT Persistent, 1.7 x 1.2 cm masslike asymmetry at the 2 to 3:00 position of the left breast 10 cm from the nipple this may represent asymmetric parenchyma but a mass cannot be confidently excluded. There is no ultrasonographic correlate. Therefore, stereotactic core biopsy of this area is recommended. This finding and recommendation were discussed by me with the patient immediately following completion of imaging. Biopsy will be scheduled. BI-RADS CATEGORY: 4A - LOW SUSPICION FOR MALIGNANCY RECOMMENDATION: Core biopsy of left breast recommended. [facility]: [facility] [address] [place] [address] -------- FINAL REPORT -------- Dictated By: Vic Barker Dictated Date: 05/28/2025 08:38 ET Assigned Physician: Vic Barker Reviewed and Electronically Signed By: Vic Barker Signed Date: 05/28/2025 09:27 ET Workstation ID: [id number] Transcribed By: Self Edit Transcribed Date: 05/28/2025 09:22 ET Narrative 05/28/2025 9:27 AM EDT CLINICAL: The patient is a 40 years Female. Screening mammography performed 10/21/2024, and supplementary imaging performed 11/10/2024, demonstrated a 1.8 x 1.0 cm masslike asymmetry at the 2 to 3:00 position of the left breast, 7 to 8 cm from the nipple. Ultrasound examination also performed 11/10/2024 demonstrated a corresponding 1.8 x 0.8 x 1.3 cm hypoechoic solid mass at the 2:00 position 12 cm from the nipple. Ultrasound-guided biopsy was scheduled for one 04/30/2025; however, no definite mass was seen at that time and biopsy was therefore not performed. The patient now presents for follow-up mammography. COMPARISON: Most recently 11/10/2024 and most remotely 11/26/2019. TECHNIQUE: Full-field digital mammography of the left breast consisting of tomosynthesis in MLO and CC projection is performed in the [employer] 2000-D unit. Computer aided detection utilizing the [employer] system was utilized. FINDINGS: The study demonstrates the left breast to be composed of a combination of fatty and fibroglandular elements. Again seen is a persistent masslike asymmetry in the upper-outer quadrant of the left breast at the 2 to 3:00 position measuring 1.7 x 1.2 cm, approximately 10 cm from the nipple. This has not significantly changed in size as compared to the most recent prior study performed 11/10/2024. This is seen to best advantage on thin slice MLO tomographic image 38/105 and on thin slice CC tomographic image 50/102. Focused real-time ultrasonography of the left breast at the 2:00 position 12 cm from the nipple is performed. The study initially appears to demonstrate a 1.6 x 0.7 cm hypoechoic mass; however, live scanning performed by both the technologist and by me demonstrates that this in fact represents a lobule that blends into the surrounding parenchyma; no definite mass or other abnormality is seen. TISSUE DENSITY: There are scattered areas of fibroglandular density. (BI-RADS category B) Procedure Note Vic Barker MD - 05/28/2025 CLINICAL: The patient is a 40 years Female. Screening mammographyperformed 10/21/2024, and supplementary imaging performed 11/10/2024,demonstrated a 1.8 x 1.0 cm masslike asymmetry at the 2 to 3:00 positionof the left breast, 7 to 8 cm from the nipple. Ultrasound examinationalso performed 11/10/2024 demonstrated a corresponding 1.8 x 0.8 x 1.3 cmhypoechoic solid mass at the 2:00 position 12 cm from the nipple.Ultrasound-guided biopsy was scheduled for one 04/30/2025; however, nodefinite mass was seen at that time and biopsy was therefore notperformed. The patient now presents for follow-up mammography. COMPARISON: Most recently 11/10/2024 and most remotely 11/26/2019. TECHNIQUE: Full-field digital mammography of the left breast consisting oftomosynthesis in MLO and CC projection is performed in the [id number] unit. Computer aided detection utilizing the [employer] system wasutilized. FINDINGS: The study demonstrates the left breast to be composed of acombination of fatty and fibroglandular elements. Again seen is apersistent masslike asymmetry in the upper-outer quadrant of the leftbreast at the 2 to 3:00 position measuring 1.7 x 1.2 cm, approximately 10cm from the nipple. This has not significantly changed in size ascompared to the most recent prior study performed 11/10/2024. This isseen to best advantage on thin slice MLO tomographic image 38/105 and onthin slice CC tomographic image 50/102. Focused real-time ultrasonography of the left breast at the 2:00 [id number] cm from the nipple is performed. The study initially appears todemonstrate a 1.6 x 0.7 cm hypoechoic mass; however, live scanningperformed by both the technologist and by me demonstrates that this infact represents a lobule that blends into the surrounding parenchyma; nodefinite mass or other abnormality is seen. TISSUE DENSITY: There are scattered areas of fibroglandular density.(BI-RADS category B) IMPRESSION: Persistent, 1.7 x 1.2 cm masslike asymmetry at the 2 to 3:00 position ofthe left breast 10 cm from the nipple this may represent asymmetricparenchyma but a mass cannot be confidently excluded. There is noultrasonographic correlate. Therefore, stereotactic core biopsy of thisarea is recommended. This finding and recommendation were discussed by mewith the patient immediately following completion of imaging. Biopsy willbe scheduled. BI-RADS CATEGORY: 4A - LOW SUSPICION FOR MALIGNANCY RECOMMENDATION: Core biopsy of left breast recommended. Mammo Location: , [facility] [address] [place] [id number] -------- FINAL REPORT -------- Dictated By: Vic Barker Dictated Date: 05/28/2025 08:38 ET Assigned Physician: Vic Barker Reviewed and Electronically Signed By: Vic Barker Signed Date: 05/28/2025 09:27 ET Workstation ID: [id number] Transcribed By: Self Edit Transcribed Date: 05/28/2025 09:22 ET us William Shah MD IMG BI PROCEDURES Final Result * (ABNORMAL) US Breast Limited Left (05/28/2025 9:14 AM EDT) Anatomical Region Laterality Modality Breast Left Ultrasound 05/28/2025 9:09 AM EDT Impressions 05/28/2025 9:21 AM EDT No definite ultrasonographic correlate to the finding on mammography is demonstrated. Therefore, stereotactic core biopsy of the area of concern on mammography will be performed. Code 90346 -------- FINAL REPORT -------- Dictated By: Vic Barker Dictated Date: 05/28/2025 09:09 ET Assigned Physician: Vic Barker Reviewed and Electronically Signed By: Vic Barker Signed Date: 05/28/2025 09:21 ET Workstation ID: [id number] Transcribed By: Self Edit Transcribed Date: 05/28/2025 09:16 ET Narrative 05/28/2025 9:21 AM EDT The patient is a 40-year-old female. Mammography demonstrates a masslike asymmetry at the 2:00 position of the left breast 10 to 12 cm from the nipple. This was seen on previous mammography and ultrasound examination both performed 11/10/2024 and biopsy was scheduled. However, at the time of planned biopsy, no definite mass was seen. Follow-up mammography performed immediately prior to the current study demonstrated a 1.7 x 1.2 cm masslike asymmetry at the 2 to 3:00 position of the left breast 12 cm from the nipple. Follow-up ultrasound is therefore performed. FINDINGS: Focused real-time ultrasonography of the left breast at the 2:00 position 12 cm from the nipple is performed. The study initially appears to demonstrate a 1.6 x 0.7 cm hypoechoic mass; however, live scanning performed by both the technologist and by me demonstrates that this in fact represents a lobule that blends into the surrounding parenchyma; no definite mass or other abnormality is seen. 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
--- OUTSIDE RECORDS SUMMARY | 2025-06-29 15:52 | XMS_ITS | Encounter Summary ---
Author Organization [facility] Address [address] [place] [address] [place] [id number] Phone Care Team Providers Care Ironer Or Presser Name Role Phone William Shah MD Unavailable [phone] William Shah MD Primary Care Provider [phone] Encounter Details Date Type Department Care Team (Late st Contact Info) Description 06/14/2025 Orders Only [facility] [address] [place] [address] Provider, MD Michelle [facility] [place] [address] Social History Tobacco Use Types Packs/Day Years Used Date Smoking Tobacco: Never Smokeless Tobacco: Never Alcohol Use Standard Drinks/Week Comments Not Currently 0 (1 standard drink = 0.6 oz pur e alcohol) Child or Family Care Answer Date Record ed Do you have problems with on e of the following making it difficult for you to work, study, or receive health care? No 09/30/2024 Education Answer Date Recorded Are you interested in help w ith more adult education (for example, completing high school, GED, job training, learning the Romansh language, technical skills, or developing parenting skills)? No 09/30/2024 Are you concerned about learning? Not on file 09/30/2024 No 09/30/2024 Yes 09/30/2024 Food Answer Date Recorded Within the past 6 months we worried whether our food would run out before we got money to buy more. Never True 09/30/2024 Within the past 6 months the food we bought just didn't last and we didn't have enough money to get more. Never True Residential Stability Answer Date Recor ded What is your housing situation today? I have joe ruiz 09/30/2024 How many times have you move d in the past 12 months? Zero (I did not move) 09/30/2024 Paying for Meds Answer Date Recorded Do you have trouble paying for medicines? No 09/30/2024 Paying Utility Bills Answer Date Record ed Do you have trouble paying your heating or elect ricity bill? No 09/30/2024 Transportation Answer Date Recorded Has the lack of transportati on kept you from medical appointments or from getting medications? No 09/30/2024 Unemployment Answer Date Recorded Are you currently unemployed or working on a part-time or temporary basis, and looking for work? No 09/30/2024 Digital Access Answer Date Recorded No 09/30/2024 Yes 09/30/2024 Do you have reliable internet access at home? Ye s 09/30/2024 Do you have a device (e.g., phone, tablet, computer) with a working camera? Yes 09/30/2024 Intimate Partner Violence Answer Date R ecorded Denied Basic Needs Not on file 09/30/2024 In the past 12 months have y ou been in a relationship with a person who hurts, threatens, or tries to control you? No 09/30/2024 Worried food would run out Not on file 09/30 In the past 12 months have y ou been in a relationship with a person who hurts, threatens, or tries to control you? No 09/30/2024 Comments No Sex and Gender Information Value Date Recorded Sex Assigned at Female 04/15/2020 2:13 PM EDT Legal Sex Female 10:28 PM EDT Gender Identity Female 04/15/2020 2:13 PM EDT Sexual Orientation Straight 04/15/2020 2: 13 PM EDT documented as of this encounter Plan of Treatment Upcoming Encounters Date Type Department Care Team (Late st Contact Info) Description 10/01/2025 2:00 PM EST Office Visit [facility] [place] [facility] [address] [place] [address] [place] [address] William Shah MD [address] [place] [address], [address] [place] [address] documented as of this encounter Procedures Procedure Name Priority Date/Time Associated Diagnosis Comments OUTSIDE PATHOLOGY Routine 06/10/2025 3:10 PM EDT documented in this encounter Results * Outside Pathology (06/10/2025 3:10 PM EDT) us Historical Provider PATHOLOGY ORDERABLES Tiffani l Result documented in this encounter Visit Diagnoses Not on filedocumented in this encounter Additional Health Concerns Assessment Noted Time PHQ-9 Depression Total Score: 12 022 3:21 PM EST PHQ-2 Depression Total Score: 2 09/30/20 24 2:39 PM EST documented as of this encounter Care Teams Ironer Or Presser Relationship Specialty Start Date End Date William Shah MD [address] [facility], [address] [place] [address] PCP - General 11/14/17 William Shah MD [address] [place] [address], [address] [place] [address] Historical [facility] Provider 08/27/17 documented as of this encounter Additional Source Comments The information contained in this document represents components of the legal health record. It is not the complete legal health record.[facility]
--- OUTSIDE RECORDS SUMMARY | 2025-06-29 15:53 | XMS_ITS ---
Author Name [facility] Organization Unknown Care Team Organization Name Specialty Phone Email Start Date End Da te [facility] NULL Primary Care 09/18/2022 06/29/2024
== END 2025-06-29 15:27 | disposition home or self-care (01) ==
LOC: HO.HOP 14:31
PROVIDERS: PCP Pediatrics; Visit Provider Psychiatry & Neurology Psychiatry
DX: F98.8 Other specified behavioral and emotional disorders with onset usually occurring in childhood and adolescence (principal); F32.5 Major depressive disorder, single episode, in full remission
CPT/HCPCS: 99214

== ENCOUNTER 2025-09-14 11:02 | Outpatient (AMB) | payer OTHER, SELFPAY ==
[2025-09-14 14:48] VITALS: BP 142/93
--- NOTE | 2025-09-14 14:48 | MHC.OFFVISPS ---
Intake Vital Signs 09/14/25 14:48 BP 142/93 H Intake Visit Reasons: Depression Allergies ceftin Allergy (Mild, Uncoded 08/22/23 16:21) Rash HPI- Psychiatric Chief Complaint: Depression HPI Narrative: PATIENT SUMMARY The patient presented for a follow-up appointment to discuss current medication management, particularly the use of Vyvanse for ADD, and to address concerns about blood pressure. HPI The patient reported feeling that their ADD is better managed with Vyvanse but expressed a desire to increase the dosage for improved effectiveness. They had previously been on a higher dose of Adderall and noted that the current Vyvanse dose does not last through the day. The patient also mentioned feeling disorganized and distractible, particularly at work, despite restructuring their schedule. The patient stated that they work better under pressure but currently have less pressure in their role, which may contribute to distractibility. Additionally, the patient discussed ongoing vivid dreaming and improved sleep quality with clonidine. PAIN The patient did not report any pain during the encounter. BACKGROUND The patient did not mention any new allergies or medications beyond those discussed in the session. They reported no physical symptoms aside from blood pressure concerns, with the highest reading being 144/80. Clonidine has been helping them sleep better, and they continue to take Wellbutrin, though the dose has not been reduced as previously discussed. Past Psychiatric History: hx depression saw therapist in school history of ADD with good response to Adderall in the past Mental Status Exam Mental Status Exam Narrative: Patient generally doing okay some concern that she still does not quite feel right at work not able to manage her time as well more easily distracted. Mood when seen good affect appropriate speech clear goal-directed future oriented good insight Assessment and Plan Assessment & Plan (1) ADD (attention deficit disorder) without hyperactivity: Status: Acute Code(s): F98.8 - Other specified behavioral and emotional disorders with onset usually occurring in childhood and adolescence (2) Major depression in full remission: Status: Acute Code(s): F32.5 - Major depressive disorder, single episode, in full remission (3) Essential hypertension: Status: Resolved Code(s): I10 - Essential (primary) hypertension Plan ASSESSMENT The patient is managing symptoms of ADD with Vyvanse but may require a dosage adjustment for optimal control. The blood pressure readings suggest possible hypertension, which may need further management. Differential diagnosis includes ADD, possible seasonal affective disorder given the timing of mood fluctuations, and hypertension due to elevated blood pressure readings. PLAN 1. Lower the Wellbutrin dosage to 150 mg. 2. Monitor blood pressure regularly and report findings. 3. Consider increasing Vyvanse dosage to 50 mg or 60 mg if blood pressure remains controlled. 4. Discuss the possibility of adding an antihypertensive medication, such as amlodipine, if blood pressure continues to be elevated. 5. Schedule a follow-up phone call in two weeks to reassess blood pressure and medication efficacy. 6. Plan for an in-person follow-up appointment in two months. 7. Encourage the patient to continue restructuring work tasks and consider using strategies such as noise-cancelling headphones to reduce distractions. Medications: Refilled bupropion HCl XL (Wellbutrin XL) 150 mg PO QAM 90 tabs 1RF Counseling and coordination of Care Details: I spent [] minutes reviewing the record, seeing the patient and documenting in the medical record. Counseling provided to the patient/caregiver as outlined below. Addressed patient/caregiver concerns regarding current medication regime including effective adherence. Addressed patient/caregiver concerns regarding diagnosis and prognosis including accuracy of diagnosis, prognosis over time, impact of diagnosis. Addressed patient/caregiver concerns regarding impact of recent stressors. 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
== END 2025-09-14 12:21 | disposition home or self-care (01) ==
LOC: HO.HOP 11:02
PROVIDERS: PCP Pediatrics; Visit Provider Psychiatry & Neurology Psychiatry
DX: F98.8 Other specified behavioral and emotional disorders with onset usually occurring in childhood and adolescence (principal); F32.5 Major depressive disorder, single episode, in full remission; I10 Essential (primary) hypertension
CPT/HCPCS: 90833; 99213